=== PATIENT | male | born 1965 | race Caucasian/White ===

== ENCOUNTER 2022-04-01 07:03 | Day surgery (SDC) | payer OTHER ==
[2022-03-31 16:14] LABS: BASOPHILS % (AUTO) 0.4 % (0.0-5.0); EOSINOPHILS % (AUTO) 1.7 % (0.0-8.0); HEMATOCRIT 44.3 % (42-54); LYMPHOCYTES % (AUTO) 24.8 % (21.0-51.0); MEAN CORPUSCULAR HEMOGLOBIN 27.9 pg (27.0-33.0); MEAN CORPUSCULAR HGB CONC 32.7 g/dL (32.0-36.0); MEAN CORPUSCULAR VOLUME 85.2 fL (79-99); NEUTROPHILS % (AUTO) 64.6 % (40.0-77.0); PLATELET COUNT (AUTO) 298 K/uL (130-400); RED CELL DISTRIBUTION WIDTH 13.7 % (11.0-15.5); WHITE BLOOD COUNT (AUTO) 11.1 K/uL (4.8-10.8)
[2022-03-31 16:21] LABS: APPEARANCE,URINE CLEAR (CLEAR); BILIRUBIN,URINE NEGATIVE (NEGATIVE); COLOR,URINE YELLOW (YELLOW); GLUCOSE, URINE (UA) NEGATIVE (NEGATIVE); KETONES,URINE NEGATIVE (NEGATIVE); LEUKOCYTE ESTERASE ,URINE NEGATIVE (NEGATIVE); NITRATE,URINE NEGATIVE (NEGATIVE); OCCULT BLOOD,URINE NEGATIVE (NEGATIVE); PROTEIN,URINE NEGATIVE (NEGATIVE); UROBILINOGEN,URINE 0.2 mg/dL (0.2-1.0)
[2022-03-31 16:26] VITALS: BP 157/85
[2022-03-31 16:28] LABS: INR 0.94 (0.85-1.15); PROTHROMBIN TIME 10.3 SEC (9.6-11.6)
[2022-03-31 16:29] LABS: PARTIAL THROMBOPLASTIN TIME 28.1 SEC (26.3-35.5)
[~2022-04-01] VITALS: Ht 175.3 cm; Wt 73.7 kg
[2022-04-01] VITALS (15 sets, daily range): BP systolic 113–149; BP diastolic 69–87
[~2022-04-01 07:03] MED LIST: AMLO-257 PO; METO-391 PO
[2022-04-01] MEDS ORDERED: LACTATED RINGERS 1000ML 1,000 ML IV ONE (07:35)
[2022-04-01] MEDS ORDERED: 0.9%NACL 1000ML 1,000 ML IV SCH (08:00)
[2022-04-01] MEDS ORDERED: CEFAZOLIN SODIUM 1 GM VIAL IVP ONE (08:00)
[2022-04-01] MEDS ORDERED: ROCURONIUM 10MG/1ML SYR 10 MG/ML ML ONE (08:09)
[2022-04-01] MEDS ORDERED: LIDOCAINE PF 100MG/5ML (2%) SYRINGE 5ML ONE (08:09)
[2022-04-01] MEDS ORDERED: MIDAZOLAM HCL 1 MG/ML 2ML VIAL ONE (08:09)
[2022-04-01] MEDS ORDERED: PROPOFOL 10 MG/ML 20ML VIAL IV ONE (08:09)
[2022-04-01] MEDS ORDERED: FENTANYL CITRATE PF 50 MCG/1 ML 2ML VIAL ONE (08:10)
[2022-04-01] MEDS ORDERED: FAMOTIDINE 20MG VIAL IV ONE (08:48)
[2022-04-01] MEDS ORDERED: CEFAZOLIN SODIUM 2 GM VIAL IV ONE (09:00)
[2022-04-01] MEDS ORDERED: ATOR20TA65 PO (09:05)
[2022-04-01] MEDS ORDERED: ONDANSETRON 4MG INJ ONE (09:19)
[2022-04-01] MEDS ORDERED: NEOSTIGMINE 5MG/5ML SYR IV ONE (09:50)
[2022-04-01] MEDS ORDERED: GLYCOPYRROLATE 1 MG/5 ML SYRINGE ONE (09:50)
[2022-04-01] MEDS ORDERED: IPRATROPIUM/ALBUTEROL SULFATE 3 ML SOLUTION IH ONE ×2 (10:08→10:24)
== END 2022-04-01 11:35 | disposition home or self-care (01) ==
LOC: DAH 07:03
PROVIDERS: ATTEND Student in an Organized Health Care Education/Training Program
DX: D17.21 Benign lipomatous neoplasm of skin and subcutaneous tissue of right arm (principal); I10 Essential (primary) hypertension; E78.5 Hyperlipidemia, unspecified; K21.9 Gastro-esophageal reflux disease without esophagitis; E66.9 Obesity, unspecified; Z79.01 Long term (current) use of anticoagulants; Z98.890 Other specified postprocedural states; Z90.89 Acquired absence of other organs; Z80.9 Family history of malignant neoplasm, unspecified; Z84.1 Family history of disorders of kidney and ureter
CPT/HCPCS: 71045; 87426; 85025; 85610; 85730; 81003; 36415; 23073; 94640; A4452; J0690 ×2; J7120; J3490 ×2; J3010; J2710; J2001; J2250; J2704; J2405; A4930; A4215; A4223; A4222; A4663; A4216; A4221; A4600